=== PATIENT | female | born 1955 | race Caucasian/White ===

== ENCOUNTER 2024-04-19 13:26 | Emergency (ER) | payer MEDICARE, OTHER ==
[~2024-04-19] VITALS: Ht 157.5 cm; Wt 97.9 kg
[2024-04-19] MEDS ORDERED: ONDANSETRON 4 MG TAB ODT SL ONE (14:00)
[2024-04-19] MEDS ORDERED: OXYCODONE/APAP 5/325 TAB PO ONE (14:00)
[2024-04-19] MEDS ORDERED: ESCITALOPRAM OX20 MG PO (14:30)
[2024-04-19 15:13] VITALS: BP 138/86
== END 2024-04-19 15:10 | disposition home or self-care (01) ==
LOC: ED 13:26
DX: S76.302A Unspecified injury of muscle, fascia and tendon of the posterior muscle group at thigh level, left thigh, initial encounter (principal); Z79.899 Other long term (current) drug therapy; X58.XXXA Exposure to other specified factors, initial encounter; Y93.01 Activity, walking, marching and hiking
CPT/HCPCS: 73560; 99283; A9270